=== PATIENT | male | born 1955 | race Caucasian/White ===

== ENCOUNTER 2018-11-22 01:31 | Emergency (ER) | payer BC, SELFPAY ==
[2018-11-22 01:32] VITALS: BP 117/57; PULSE 89; RESP 15; TEMP 36.9; O2SAT 97; BMI 31.0
--- NOTE | 2018-11-22 01:42 | RAD_ITS ---
HISTORY: PATIENT THINKS HE HYPEREXTENDED HIS RT RING FINGER, THEN FELT A POP IN MID RT FOREARM, C/O NUMBNESS IN RT WRIST COMPARISON: None FINDINGS: # of images incl. paperwork: 3 XR Wrist Min 3 Views : Comminuted ulnar styloid fracture is of indeterminate age. Soft tissue swelling is suspected on the volar surface of the wrist. The carpal bones have a normal appearance. The distal radius is unremarkable. No evidence of radiopaque foreign body. RAD/Wrist min 3 Views IMPRESSION: Ulnar styloid fracture of unknown acuity. Possibly acute. at 0219 Reported and signed by: Indra Gilmore MD Electronically Signed: Indra Gilmore MD at 2:18 EDT Tel , Service support ,
[2018-11-22] MEDS: Naproxen 500 MG Tablet PO (01:47)
--- NOTE | 2018-11-22 02:39 | ED.VIS.GEN ---
History of Present Illness Chief Complaint: Numb/Ting Narrative: This patient is a 63-year-old male who presents with numbness in his right hand. This was of abrupt onset about 30 minutes before presentation. He complains of numbness in his thumb index and ring fingers as well as the palm of the hand in that area. He states earlier today he was pushing a door open and his fingers bent backwards and he felt a snap like a rubber band in his wrist. He denies any associated neurological symptoms such as speech difficulty, slurred speech, weakness, numbness or tingling in any of the other extremities. He denies any medical history. No history of prior similar symptoms. Past Medical History - Allergies and Home Meds Allergies/Adverse Reactions: Allergies No Known Allergies Allergy (Verified 11/22/18 01:31) Primary Care Physician: Care Physician,No Primary [Primary Care Provider] - Past Medical History: None Smoking Status: Former smoker Review of Systems All systems negative except as indicated General: Denies: Fever Cardiovascular: Denies: Chest pain Respiratory: Denies: Dyspnea Gastrointestinal: Denies: Vomiting Musculoskeletal: Reports: - - Numbness and tingling right hand Physical Exam Vital Signs/Narrative: Vital Signs Temp Pulse Resp BP Pulse Ox 11/22/18 01:32 98.4 F 89 15 117/57 L 97 General: Well nourished, Well developed Head: Normocephalic Eyes: Perrl, EOMI ENT: Moist mucous membranes Neck: Supple Cardiovascular: Regular rate, Regular rhythm Respiratory: No distress, CTA bilaterally Abdomen: Soft Extremities: - - Patient complains of decreased sensation specific to the median nerve distribution of the right hand he has normal two-point discrimination. He has normal motor function with normal oracle hrms developer strength normal flexion and extension of the digits and wrist normal opposition of the digits although he complains of pain with opposition of the thumb and fifth finger he has some tenderness over the wrist as well but no bony deformity he has brisk capillary refill in all digits and an easily palpable radial pulse Neurological: Alert, - - NIH stroke scale is 0. With the exception of decreased sensation in the median nerve distribution of the right hand neurological exam is normal. Diagnostic/Tx/Re-eval Impressions Wrist X-Ray 11/22/18 01:42 IMPRESSION: Ulnar styloid fracture of unknown acuity. Possibly acute. at 0219 Reported and signed by: Indra Gilmore MD Electronically Signed: Indra Gilmore MD at 2:18 EDT Tel , Service support , 11/22/18 01:42 Wrist min 3 Views [RAD] Stat - Medical Decision Making Patient's numbness is specific to the median nerve distribution. His presentation is consistent with acute carpal tunnel syndrome likely related to an acute ulnar styloid fracture. He was given naproxen here. I spoke to orthopedic surgery on-call, Dr. Mccall who agrees with plan for wrist splint and steroids but also wants to see the patient in the office today. Patient was given his contact information and advised to contact the office this morning for close follow-up. He understands to return for new or worsening symptoms and was discharged home. ED Disposition - Plan for ED Patient: Disposition: Home or Assisted Living Diagnosis: Carpal tunnel syndrome of right wrist, Ulna styloid fracture, closed Instructions: Carpal Tunnel, FRACTURE, Wrist [General] Prescriptions: predniSONE tablet 60 mg PO DAILY #15 tab Prescription Printed Referrals: Care Physician,No Primary [Primary Care Provider] - Kaiden Mccall DO [STAFF PHYSICIAN] -
[2018-11-22 02:45] VITALS: BP 114/62; PULSE 82; RESP 16; O2SAT 96
== END 2018-11-22 02:57 | disposition home or self-care (01) ==
PROVIDERS: Emergency Provider Emergency Medicine
DX: G56.01 Carpal tunnel syndrome, right upper limb (principal); S52.611D Displaced fracture of right ulna styloid process, subsequent encounter for closed fracture with routine healing; X50.9XXA Other and unspecified overexertion or strenuous movements or postures, initial encounter; Y93.9 Activity, unspecified; Y92.9 Unspecified place or not applicable; Y99.9 Unspecified external cause status; Z87.891 Personal history of nicotine dependence
CPT/HCPCS: 73110; 99283

== ENCOUNTER → 2018-11-22 14:25 | Outpatient (CLI) | payer BC, SELFPAY ==
[2018-11-22 10:07] VITALS: BMI 31.0
--- NOTE | 2018-11-22 14:27 | MRI_ITS ---
STUDY: MRI RIGHT WRIST WITHOUT CONTRAST REASON FOR EXAM: Male, 63 years old. Wrist injury, wrist pain. TECHNIQUE: Standardized fat and water weighted pulse sequences were obtained in all 3 orthogonal planes. COMPARISON: None. FINDINGS: Normal visualized distal radius. Chronic corticated avulsion fracture the ulnar styloid. Normal distal radioulnar Articulation (DRUJ). Normal triangular fibrocartilaginous complex (TFCC). There are ligamentous enthesopathic cortical erosions of the volar aspects of the carpal bones. Normal radiocarpal, intercarpal and midcarpal articulations. Normal pisotriquetral articulation. Normal visualized interosseous scapholunate ligament. Normal visualized dorsal (extrinsic) ligaments. Normal visualized volar (extrinsic) ligaments. Normal extensor tendons. There is edema surrounding the flexor tendons in the distal forearm proximal to the carpal tunnel suggestive of muscle strain. No discrete muscle or tendon tear. Normal carpal tunnel with a normal median nerve. Normal carpometacarpal articulation of the thumb. Normal second through fifth carpometacarpal articulations. Normal visualized metacarpal bones. There is no demonstrated soft tissue abnormality. MRI/Upper Ext Joint Only(Routine) IMPRESSION: Muscle strain of the flexor muscles of the distal forearm but no discrete muscle or tendon tear. Normal appearance of the carpal tunnel. Electronically Signed: Peyman Brooks MD at 16:20 EDT Tel , Service support ,
== END ==
PROVIDERS: Referring Provider Orthopaedic Surgery; Visit Provider Orthopaedic Surgery
DX: M65.9 Synovitis and tenosynovitis, unspecified (principal)
CPT/HCPCS: 73221

== ENCOUNTER 2021-05-25 13:20 | Outpatient (CLI) | payer BC, SELFPAY ==
--- NOTE | 2021-05-25 14:44 | NEURO_ITS ---
NCS and/or EMG Patient Report Ordering Doctor: Kaiden Mccall DATE OF SERVICE: 05/25/21 Indication: Bilateral hand numbness and tingling. Symptoms are symmetric and flare at night while trying to sleep. Findings: The right median motor study recording the abductor pollicis brevis showed a borderline amplitude, prolonged distal latency and mildly slowed conduction velocity. The patient tolerated the procedure poorly and elected not to continue the remainder of the examination. Impression: This is an abnormal, but incomplete study. 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 A more complete evaluation is recommended in the future should the patient decide to return. Alistair Santana D.O. Multi Select Codes Neurology Neurology Interp Codes: 05880-85 [facility] cndj tst 1-2 studies (interp)
== END 2021-05-25 23:59 | disposition home or self-care (01) ==
LOC: PSN 13:21
PROVIDERS: Referring Provider Orthopaedic Surgery; Visit Provider Orthopaedic Surgery
DX: G56.00 Carpal tunnel syndrome, unspecified upper limb (principal)
CPT/HCPCS: 95907

== ENCOUNTER → 2023-05-17 | Outpatient (CLI) | payer OTHER, SELFPAY ==
[2023-05-17 15:30] LABS: Absolute Lymphocyte Count 1.32 X10^3/uL (0.83-4.51); Absolute Neutrophil Count 5.2 X10^3/uL (2.0-7.7); Basophil# 0.03 X10^3/uL; Basophil% 0.4 % (0-1); Eosinophil# 0.18 X10^3/uL; Eosinophils% 2.5 % (0-5); Hemoglobin 15.7 g/dL (13.0-16.5); Lymphocyte # 1.32 X10^3/ul (0.83-4.51); Lymphocyte % 18.1 % (19-41); Mean Corp Hgb Conc 33.4 g/dL (32-36); Mean Corpuscular Hgb 31.5 pg (27.0-32.0); Mean Corpuscular Volume 94.2 fL (80-94); Mean Platelet Vol. 9.5 fl (6.2-12.0); Monocyte# 0.52 X10^3/uL; Monocyte% 7.1 % (0-10); NRBC Flagged by Analyzer 0 % (0-5); Neutrophil % 71.2 % (47-70); Platelet Count 326 K/mm3 (150-450); RBC Distribution Width CV 12.1 % (11.6-14.6); RBC Distribution Width SD 41.8 fl (35.1-43.9); Red Blood Count 4.99 M/mm3 (4.6-6.2); White Blood Count 7.3 K/mm3 (4.4-11.0)
[2023-05-17 15:58] LABS: ALB/GLOB Ratio 1.3 RATIO (0.9-2.4); AST(SGOT) 25 U/L (15-37); Alanine Aminotransfer ALT/SGPT 50 U/L (16-61); Albumin, Serum 4.1 g/dL (3.2-5.0); Alkaline Phosphatase 71 U/L (45-117); Anion Gap 7 (5-15); BUN 13 mg/dL (7-18); BUN/Creat Ratio 13.2 RATIO (10-20); Calcium,Total 9.5 mg/dL (8.5-10.1); Chloride 107 mmol/L (98-107); Cholesterol 247 mg/dL (200); Creatinine, Serum 0.99 mg/dL (0.70-1.30); EST Glomerular Filtration Rate 81 mL/min (>60); Est Glom Filt Rate - Afr Amer 98 mL/min (>60); Globulin 3.1 g/dL (2.2-4.2); Glucose 110 mg/dL (74-106); High Density Lipoprotein 47 mg/dL; PSA,Total - Annual Screen 0.84 ng/mL (0.00-4.00); Potassium 4.1 mmol/L (3.5-5.1); Protein, Total 7.2 g/dL (6.4-8.2); Sodium Level 138 mmol/L (136-145); Triglycerides 159 mg/dL; Very Low Density Lipoprotein 32 mg/dL (5-40)
== END | disposition home or self-care (01) ==
LOC: BFHLAB 11:34
PROVIDERS: PCP Family Medicine; Visit Provider Family Medicine
DX: Z00.00 Encounter for general adult medical examination without abnormal findings (principal); Z12.5 Encounter for screening for malignant neoplasm of prostate; N52.9 Male erectile dysfunction, unspecified
CPT/HCPCS: 36415; 80053; 80061; 84153; 84403; 85025; G0103

== ENCOUNTER 2024-08-07 09:05 | Emergency (ER) | payer OTHER, SELFPAY ==
[2024-08-07 09:06] VITALS: BP 149/74; PULSE 92; RESP 19; TEMP 36.7; O2SAT 98; BMI 28.9
--- NOTE | 2024-08-07 09:17 | EDS_ITS ---
HPI HPI - URI History of Present Illness Chief Complaint: Sore Throat Informant: patient Onset/Context/Timing Onset: Days (4) Context: Gradual Onset Timing: Continuous Quality: Sore Location: Right side of throat Worsened by: Swallowing Relieved by: - (Nothing) Associated Symptoms Associated Symptoms: Positive for Nonproductive cough; Negative for Nasal Congestion, Headache, Sinus Pressure, Myalgias, Nausea, Vomiting, Diarrhea, Shortness of Breath, Chest Pain, Hemoptysis or Productive Cough Narrative Narrative: Patient presents with a sore throat that has been getting worse over the last 4 days. Patient states it is gradually getting worse. Patient states it feels similar to when he had strep throat as a child. Patient states it is mainly on the right side of his throat. Patient states it is worse with swallowing. Patient states he had a slight cough yesterday. Patient denies any sputum production. Patient denies any chest pain or shortness of breath. Patient denies any nausea or vomiting. ROS ROS ED Constitutional Constitutional ED: Denies chills or fever(s) Eyes Eyes: Denies blurry vision or change in vision ENT ENT ED: Reports sore throat; Denies rhinorrhea Cardiovascular Cardiovascular: Denies chest pain or palpitations Respiratory/Chest Respiratory/Chest: Denies cough or dyspnea Gastrointestinal Gastrointestinal: Denies nausea or vomiting Genitourinary Genitourinary ED: Denies dysuria or hematuria Musculoskeletal Musculoskeletal: Denies back pain or neck pain Integumentary Denies abscess or rash Neurologic Neurologic: Denies headache(s) or weakness Allergic/Immunologic Allergic/Immunologic ED: Denies mouth swelling or urticaria PFSH PFSH Medical History no medical history no medical history Home Medications ?Medication ?Instructions ?Recorded ?Last Taken ?Type glucosam 750 mg-chondroi 100 tab PO 05/04/21 Unknown H istory mg-hyalur 1.65 mg-CF borate 108 mg tablet (Zubka) melatonin 5 mg capsule mg PO 05/04/21 Unknown Histo ry multivitamin 1 tab PO DAILY 05/04/21 Unkn own History omega-3 fatty acids 1,000 mg 1,000 mg PO DAILY 2 Unknown History capsule amoxicillin 875 mg-potassium 875 mg PO Q12H #20 TABLET S 08/07/24 Unknown Rx clavulanate 125 mg tablet Allergy/AdvReac Type Severity Reaction Status Date / Time No Known Allergies Allergy Verified 08/07/24 09:06 Family History Father Cancer Mother Cancer Surgical History h/o melanoma no surgical history Social History (Updated 08/07/24 @ 09:[address] Inderjit Osorio, ) Smoking Status: Former smoker substance use type: marijuana EXAM Physical Exam Const Vital Signs: 08/07/24 09:06 08/07/24 11:06 Temperature 98.1 F Temperature Source Oral Pulse Rate 92 88 Respiratory Rate 19 H 20 H Blood Pressure 149/74 H 187/120 H Blood Pressure Mean 99 142 Pulse Ox 98 97 Oxygen Delivery Method Room Air Positive well nourished and well developed General Appearance ED: well developed and NAD HEENT Reports moist mucous membranes HEENT Narrative: There is edema of the right peritonsillar area. There is no erythema. Airway is patent. normocephalic and atraumatic Throat: posterior oropharynx abnormal Positive for edema and erythema Neck supple and no JVD Resp normal respiratory effort and clear to auscultation bilaterally Cardio Rate: regular rate Rhythm: regular rhythm GI non-tender and non-distended Palpation: soft Neuro oriented x3, CN's II-XII intact bilaterally and no sensory deficits noted Sensorium / Orientation: alert Motor Exam: strength 5/5 throughout Psych mental status grossly normal MDM MDM MDM Narrative Medical decision making narrative: Differential diagnosis includes peritonsillar abscess, strep pharyngitis, and viral pharyngitis. CT scan of the soft tissue neck will be obtained to assess for peritonsillar abscess. CBC will be obtained to assess for leukocytosis and anemia. Basic metabolic profile will be obtained to assess for electrolyte abnormality and renal function. Rapid strep will be obtained to assess for strep pharyngitis. Lab Data Attestation: I reviewed the patient's lab results. Lab results narrative: CBC was reviewed. There is a leukocytosis of 19.6. The remainder is within normal limits. Basic metabolic profile was reviewed and was within normal limits. Labs: Laboratory Results - last 24 hr 08/07/24 09:34 WBC 19.6 H RBC 4.75 Hgb 15.5 Hct 44.3 MCV 93.3 MCH 32.6 H MCHC 35.0 RDW Std Deviation 42.0 RDW Coeff of Yen 12.1 Plt Count 309 MPV 9.0 Immature Gran % (Auto) 0.400 Neut % (Auto) 85.6 H Lymph % (Auto) 5.0 L Upton % (Auto) 8.4 Eos % (Auto) 0.4 Baso % (Auto) 0.2 Absolute Neuts (auto) 16.8 H Absolute Lymphs (auto) 0.98 Nucleated RBC % 0 Differential Comment SCANNED Sodium 137 Potassium 4.0 Chloride 104 Carbon Dioxide 22.2 Anion Gap 11 BUN 8 Creatinine 0.82 Estim Creat Clear Calc 100.72 Est GFR (MDRD) Non-Af 97 BUN/Creatinine Ratio 10.4 Glucose 119 H Calcium 9.6 Radiography Diagnostic Testing: Clinical Impression(s) from Imaging Studies Soft Tissue Neck CT 08/07/24 09:23 IMPRESSION: Soft tissue mass as described involving the hypopharynx down to the right vocal cord with heterogeneous appearance in the region of the hypopharynx suggestive of either abscess or possible necrotic changes. Enlargement of the right cervical lymph nodes. Clinical correlation recommended. Reading Location: [facility] CT scan of the soft tissue neck was obtained. There is a peritonsillar abscess on the right. There is enlargement of the cervical lymph nodes. This was interpreted by the radiologist and was also independently reviewed by myself. Treatment and Re-Evaluation Narrative: Patient was given a dose of Unasyn. Patient was given a dose of morphine. The right peritonsillar area was coated with viscous lidocaine. The area was aspirated using an 18-gauge needle. Approximately 2 cc of purulent material was withdrawn. Patient felt better after this. Patient was advised that he may continue to have some drainage from the oropharynx. Patient was given a prescription for Augmentin. Patient was instructed to follow-up with ENT in 7 to 10 days. Patient was instructed to return if worse in any way. Patient understood and was agreeable with the plan. All questions were answered. Discharge Plan Triage Chief Complaint: Sore Throat Other Complaint: Abscess ED Provider: Inderjit Osorio Dx/Rx/DC Orders Clinical Impression: Peritonsillar abscess, Elevated blood pressure reading Instructions: ED Peritonsillar Abscess Prescriptions: New amoxicillin-pot clavulanate 875-125 mg tablet 875 mg PO Q12H Qty: 20 0RF No Action melatonin 5 mg capsule PO omega-3 fatty acids 1,000 mg capsule 1,000 mg PO DAILY multivitamin Tablet 1 tab PO DAILY Move [facility] 750 mg-100 mg- 1.65 mg-108 mg tablet PO Primary Care Provider: Ricki Ruiz Referrals: Alistair Elizalde MD [Med Staff - Active Staff] - 1-2 Weeks Ricki Ruiz DO [Primary Care Provider] - Print Language: Thai Disposition Disposition: Home, Self Care Discharge Date/Time: 08/07/24 12:52
--- NOTE | 2024-08-07 09:23 | CT_ITS ---
PROCEDURE: SOFT TISSUE NECK WITH CONTRAST REASON FOR EXAM: PHARYNGITIS TECHNIQUE: CT of the soft tissues of the neck from the orbits to the upper mediastinum with intravenous contrast. One or more dose reduction techniques were used (e.g., Automated exposure control, adjustment of the mA and/or kV according to patient size, use of iterative reconstruction technique). CONTRAST: Isovue-300 VOLUME: 95 mL RADIATION DOSE SUMMARY: CTDlvol: 18.61 mGy DLP: 553.41 mGycm COMPARISON: None. None FINDINGS: Airway: Slight narrowing of the right side of the oropharynx and hypopharynx. Hypopharynx and larynx: There is evidence of a 3.8 cm x 2.2 cm soft tissue density arising from the oropharynx and extending caudally into the region of the right hypopharynx and right vocal cord. There is evidence of heterogeneous enhancement in the right side of the oral pharynx with the possible necrosis or abscess formation measuring 1.4 cm by 1 cm. Salivary glands: Unremarkable Lymph nodes: Mild enlargement of the right cervical lymph nodes. Thyroid: Unremarkable. Vasculature: Carotid arteries and internal jugular veins are unremarkable. Orbits: Unremarkable Paranasal sinuses and mastoids: Unremarkable Lung apices: Unremarkable Upper mediastinum: Unremarkable Bones: Multilevel degenerative changes of the spine. CT/Soft Tissue Neck WITH Contrast IMPRESSION: Soft tissue mass as described involving the hypopharynx down to the right vocal cord with heterogeneous appearance in the region of the hypopharynx suggestive of either abscess or possible necrotic changes. Enlargement of the right cervical lymph nodes. Clinical correlation brandon tam Reading Location: [id number]
[2024-08-07 09:41] LABS: Absolute Lymphocyte Count 0.98 X10^3/uL (0.83-4.51); Absolute Neutrophil Count 16.8 X10^3/uL (2.0-7.7); Basophil# 0.04 X10^3/uL; Basophil% 0.2 % (0-1); Differential Indicated SCAN CRITERIA MET; Eosinophil# 0.07 X10^3/uL; Eosinophils% 0.4 % (0-5); Hematocrit 44.3 % (40-54); Hemoglobin 15.5 g/dL (13.0-16.5); Lymphocyte # 0.98 X10^3/ul (0.83-4.51); Mean Corpuscular Hgb 32.6 pg (27.0-32.0); Mean Corpuscular Volume 93.3 fL (80-94); Monocyte# 1.64 X10^3/uL; Monocyte% 8.4 % (0-10); NRBC Flagged by Analyzer 0 % (0-5); Neutrophil # 16.76 X10^3/uL (2.7-7.7); Neutrophil % 85.6 % (47-70); POSITIVE DIFFERENTIAL YES; Platelet Count 309 K/mm3 (150-450); RBC Distribution Width CV 12.1 % (11.6-14.6); Red Blood Count 4.75 M/mm3 (4.6-6.2); White Blood Count 19.6 K/mm3 (4.4-11.0)
[2024-08-07 10:13] LABS: Differential Comment SCANNED
[2024-08-07 10:34] LABS: Anion Gap 11 (5-15); BUN 8 mg/dL (4-19); BUN/Creat Ratio 10.4 RATIO (10-20); Calcium,Total 9.6 mg/dL (7.6-11.0); Carbon Dioxide 22.2 mmol/L (21.0-32.0); Chloride 104 mmol/L (98-108); Creatinine, Serum 0.82 mg/dL (0.70-1.20); EST Glomerular Filtration Rate 97 (>60); Estimated Creatinine Clearance 100.72 ml/min (50-250); Glucose 119 mg/dL (70-99); Sodium Level 137 mmol/L (133-145)
[2024-08-07] MEDS: Ampicillin/Sulbactam 3 GM in 0.9% Normal Saline (100mL MB+) 100 ML IV (10:40)
[2024-08-07 11:06] VITALS: BP 187/120; PULSE 88; RESP 20; O2SAT 97
[2024-08-07] MEDS: Morphine 4 MG/ML Syringe IV (11:13)
[2024-08-07] MEDS: Lidocaine 2% Viscous15 ML UDC 15 ML PO (12:03)
--- NOTE | 2024-08-07 12:26 | ED.RN ---
PT ABSCESS NUMBED PER DR FINK. MODERATE AMOUNT OF THICK PURULENT MATERIAL REMOVED
== END 2024-08-07 12:52 | disposition home or self-care (01) ==
PROVIDERS: Emergency Provider Emergency Medicine; PCP Family Medicine; Visit Provider Emergency Medicine
DX: J36 Peritonsillar abscess (principal); R03.0 Elevated blood-pressure reading, without diagnosis of hypertension; Z87.891 Personal history of nicotine dependence
CPT/HCPCS: 42700; 70491; 80048; 85025; 87651; 96365; 96375; 99284; Q9967; A4216; J0295